=== PATIENT | female | born 1955 | race Caucasian/White ===

== ENCOUNTER → 2016-09-20 | Outpatient (CLI) | payer SELFPAY ==
--- NOTE | 2016-09-20 11:43 | DI ---
XR ANKLE COMPLETE MIN 3VW,09/20/2016 10:47 AM: Clinical History: Right ankle fracture. Previous Exam: None at this facility. Findings: 3 views of the right ankle are obtained, and demonstrate a slightly displaced avulsion fracture of th e right distal fibula. The surrounding soft tissues are unremarkable except for a small right knee joint effusion. The distal tibiofibular joint remains anatomic. There is mild enthesopathy at the insertion of the Achilles tendon and the plantar fascia. Impression: Minimally displaced fracture of the right distal fibula.
== END ==
LOC: ORTHO 11:03
PROVIDERS: ATTEND Orthopaedic Surgery
DX: S82.831D Other fracture of upper and lower end of right fibula, subsequent encounter for closed fracture with routine healing (principal)
CPT/HCPCS: 73610